=== PATIENT | female | born 1985 | race Two or more races ===

== ENCOUNTER 2024-02-11 02:00 | Emergency (ER) | payer MEDICAID, OTHER ==
[~2024-02-11] VITALS: Ht 149.9 cm; Wt 65.9 kg
[2024-02-11 02:17] VITALS: BP 124/72; PULSE 68; RESP 18; O2SAT 100
== END 2024-02-11 07:56 | disposition left against medical advice (07) ==
LOC: ER 02:00
DX: M25.551 Pain in right hip (principal); R10.31 Right lower quadrant pain; M79.651 Pain in right thigh; Z53.21 Procedure and treatment not carried out due to patient leaving prior to being seen by health care provider
CPT/HCPCS: 36415; 85379; 93971